=== PATIENT | female | born 1930 | race Native Hawaiian/Other Pacific Islander ===

== ENCOUNTER 2017-01-27 11:52 | Outpatient (CLI) | payer OTHER | END 2017-01-27 19:08 | disposition home or self-care (01) | LOC: LAB 11:52 | DX: N39.0 Urinary tract infection, site not specified (principal) | CPT/HCPCS: 81000; 87086; 87088 ==

== ENCOUNTER 2017-09-21 12:43 | Outpatient (CLI) | payer OTHER | END 2017-09-21 13:45 | disposition home or self-care (01) | LOC: LAB 12:43 | DX: N39.0 Urinary tract infection, site not specified (principal) | CPT/HCPCS: 81000; 87088 ==

== ENCOUNTER 2017-12-26 11:50 | Outpatient (CLI) | payer OTHER | END 2017-12-26 12:11 | disposition short-term general hospital (02) | LOC: AMB 11:50 | DX: I10 Essential (primary) hypertension (principal); R10.84 Generalized abdominal pain; R51 Headache | CPT/HCPCS: A0425; A0427 ==